=== PATIENT | female | born 1940 | race Caucasian/White ===

== ENCOUNTER → 2016-11-16 | Outpatient (CLI) | payer MEDICARE, OTHER ==
[~2016-11-16] MED LIST: ALEN70TA3 PO; CONTRAST GIVEN MC PRN; ESOM20CA PO; IOHEXOL 240 MG/ML 50ML VIAL. PO ONE; IOHEXOL 300 MG/ML 75 ML VIAL IV ONE
--- NOTE | 2016-11-16 11:31 | RAD ---
CT chest abdomen pelvis with IV contrast History: Staging of lymphoma. Comparison: None. Technique: After administration of oral and intravenous contrast, 75 mL Omnipaque 300, helical CT of the chest, abdomen, and pelvis was performed from the lung apices through the ischial tuberosities. One or more of the following individualized dose reduction techniques were utilized for the study: Automated exposure control Adjustment of mA and/or kV according to patient's size Use of iterative reconstruction technique. Findings: Visualized thyroid is symmetric. Trachea and mainstem bronchi appear patent. Variant aortic arch is seen with the left vertebral artery arising directly from the aortic arch. Small mediastinal lymph nodes are seen. Right upper paratracheal lymph node measures 0.7 x 0.7 cm in maximum dimension. Right lower paratracheal lymph node measures 1.8 x 0.9 cm. AP window lymph node measures 1.2 x 0.9 cm. Subcarinal lymph node measures 1.4 x 0.7 cm. Right cardiophrenic lymph node measures 1.1 x 1.0 cm. Largest left cardiophrenic lymph node measures 1.7 x 0.6 cm. No pneumothorax or pleural effusion is seen. There are innumerable small groundglass centrilobular nodules involving both lungs, most evident in the lower lobes and right middle lobe. Spleen is massively enlarged. Spleen measures 17.0 x 10.6 cm in maximum axial dimension x 24.1 cm in craniocaudal dimension. Abdominal and pelvic lymphadenopathy is seen. For example, largest portacaval lymph node measures 4.5 x 2.3 cm in axial dimension (series 4 image 27). Aortocaval lymph node measures 2.1 x 1.7 cm in axial dimension (series 4 image 37). Largest largest left infrarenal para-aortic lymph node measures 2.4 x 1.5 cm (series 4 image 35). Multiple enlarged mesenteric lymph nodes are seen. For example, root of the mesentery of the abdomen demonstrates lymph node measuring 2.3 x 1.4 cm (series 4 image 44). Proximal right common iliac lymph node measures 1.6 x 0.9 cm. Liver, spleen, and bilateral adrenal glands are unremarkable. Gallbladder is unremarkable. Bilateral kidneys enhance symmetrically. There is evidence of mass effect and partial impression of the left kidney secondary to a massively enlarged spleen. Duodenal diverticulum is seen. Urinary bladder is unremarkable. No bowel obstruction or inflammation is seen. No free air or free fluid is seen in the abdomen or pelvis. Impression: 1. Small to borderline mediastinal lymph nodes are seen. Borderline cardiophrenic lymph nodes are present. 2. Numerous centrilobular groundglass nodules involving both lungs, more evident in the lower lobes. This finding is nonspecific, but possible etiologies include infectious bronchiolitis or other small airway infection. Respiratory bronchiolitis and hypersensitivity pneumonitis can also give appearance of groundglass centrilobular nodules, although with these entities, the nodules are more commonly located located in the upper lobes. Recommend correlation with respiratory symptoms. 3. Massive splenomegaly. Abdominal and pelvic lymphadenopathy.
== END | disposition home or self-care (01) ==
LOC: CT 08:55
PROVIDERS: ATTEND Internal Medicine Hematology & Oncology
DX: D70.9 Neutropenia, unspecified (principal); R59.1 Generalized enlarged lymph nodes
CPT/HCPCS: 71260; 74177; Q9966; Q9967

== ENCOUNTER 2016-11-24 08:18 | Outpatient (CLI) | payer MEDICARE, OTHER ==
[2016-11-24] VITALS (13 sets, daily range): BP systolic 104–155; BP diastolic 48–85
[~2016-11-24] VITALS: Ht 167.6 cm; Wt 66.7 kg
[~2016-11-24 08:18] MED LIST changes: -CONTRAST GIVEN MC PRN; -IOHEXOL 240 MG/ML 50ML VIAL. PO ONE; -IOHEXOL 300 MG/ML 75 ML VIAL IV ONE
[2016-11-24 08:53] LABS: BASO % 1 % (0-3); EOS % 1 % (0-3); HEMATOCRIT 36.1 % (36.0-47.0); HEMOGLOBIN 12.2 g/dL (12.0-15.5); LYMPH # 1.6 x10^3/uL (1.0-4.8); LYMPH % 51 % (24-48); MEAN CORPUSCULAR HEMOGLOBIN 30 pg (25-35); MEAN CORPUSCULAR HGB CONC 34 g/dL (31-37); MEAN CORPUSCULAR VOLUME 90 fL (79-100); MONO % 4 % (0-9); NEUT % 44 % (31-73); PLATELET COUNT 153 x10^3/uL (140-400); RED BLOOD COUNT 3.99 x10^6/uL (3.50-5.40); RED CELL DISTRIBUTION WIDTH 14.9 % (11.5-14.5); WHITE BLOOD COUNT 3.2 x10^3/uL (4.0-11.0)
[2016-11-24] MEDS ORDERED: CETI10CA PO (09:01)
[2016-11-24 09:03] LABS: PROTHROMBIN TIME PATIENT 12.8 SEC (11.7-14.0)
[2016-11-24] MEDS ORDERED: LIDOCAINE 1% / SOD BICARB 8.4% 20 ML VIAL. IJ ONE ×2 (09:35→11:00)
[2016-11-24] MEDS ORDERED: FLUMAZENIL 0.5 MG/5 ML VIAL. IV ONE (10:26)
[2016-11-24] MEDS ORDERED: fentaNYL PF VIAL 250 MCG/5 ML VIAL ONE (10:26)
[2016-11-24] MEDS ORDERED: MIDAZOLAM HCL/PF 5 MG/5 ML VIAL. ONE (10:26)
[2016-11-24] MEDS ORDERED: NALOXONE 0.4 MG/ML VIAL. ONE (10:26)
[2016-11-24] MEDS ORDERED: MIDAZOLAM HCL/PF 5 MG/5 ML VIAL. IV ONE (11:00)
[2016-11-24] MEDS ORDERED: fentaNYL PF VIAL 100 MCG/2 ML VIAL IM ONE (11:00)
--- NOTE | 2016-11-24 11:49 | PDOC ---
MODERATE SEDATION ASSESSMENT RISKS/ALTERNATIVES Risks/Alternatives Risks and alternatives of this type of sedation and procedure discussed with: RISK/ALTERNATIVES: Patient H & P ON CHART H & P H & P on chart and reviewed for co-morbid conditions and appropriate labs. H&P ON CHART: Yes STATUS PREG STATUS ASSESSED: Yes MEDS/ALLERGIES REVIEWED Meds/Allergies Reviewed Medications and Allergies including time and route of recently administered narcotics and sedatives. MEDS/ALLERGIES REVIEWED: Yes ASA RATING ASA RATING: II AIRWAY ASSESSMENT Airway Assessment Airway patency, oral function limitations, presence of caps, crowns, dentures, partials, and ability to extend neck assessed. AIRWAY ASSESSMENT: Yes MALLAMPATI SCORE MALLAMPATI SCORE: II PRE-SEDATION ASSESSMENT PRE-SEDATION ASSESSMENT: Yes BASSAM BRANDON MD November 24, 2016 11:49
--- NOTE | 2016-11-24 11:49 | PDOC1 ---
History and Physical Date of Procedure Date of Admission History of Present Illness Reason for Visit 76 yo with lymphoma Past Medical History Past Medical History see nursing pre-op assessment Current Medications Current Medications Current Medications Lidocaine/Sodium Bicarbonate (Buffered Lidocaine 1%) 20 ml STK-MED ONCE IJ ; Start 11/24/16 at 09:35; Stop 11/24/16 at 09:36; Status DC Naloxone HCl (Narcan) 0.4 mg STK-MED ONCE .ROUTE ; Start 11/24/16 at 10:26; Stop 11/24/16 at 10:27; Status DC Flumazenil (Romazicon) 0.5 mg STK-MED ONCE IV ; Start 11/24/16 at 10:26; Stop 11/24/16 at 10:27; Status DC Midazolam HCl (Versed) 5 mg STK-MED ONCE .ROUTE ; Start 11/24/16 at 10:26; Stop 11/24/16 at 10:27; Status DC Fentanyl Citrate (Fentanyl 5ml Vial) 250 mcg STK-MED ONCE .ROUTE ; Start at 10:26; Stop 11/24/16 at 10:27; Status DC Lidocaine/Sodium Bicarbonate (Buffered Lidocaine 1%) 20 ml 1X ONCE IJ Last administered on 11/24/16 10:56; Start 11/24/16 at 11:00; Stop 11/24/16 at 11:01; Status DC Midazolam HCl (Versed) 5 mg 1X ONCE IV Last administered on 11/24/16 10:56; Start 11/24/16 at 11:00; Stop 11/24/16 at 11:01; Status DC Fentanyl Citrate (Fentanyl 2ml Vial) 250 mcg 1X ONCE IM Last administered on 10:58; Start 11/24/16 at 11:00; Stop 11/24/16 at 11:01; Status DC Active Scripts Active Reported Zyrtec (Cetirizine Hcl) 10 Mg Capsule 10 Mg PO Fosamax (Alendronate Sodium) 70 Mg Tablet 70 Mg PO WEEKLY Nexium Capsule (Esomeprazole Magnesium) 20 Mg Capsule.dr 20 Mg PO DAILYAC Allergies Allergies: Coded Allergies: No Known Drug Allergies (Unverified , 11/16/16) Physical Exam Vital Signs Vital Signs Date Time Temp Pulse Resp B/P (MAP) Pulse Ox O2 Delivery O2 Flow Rate FiO2 11/24/16 11:37 67 12 91 11/24/16 11:22 Nasal Cannula 2.0 11/24/16 08:56 97.7 141/56 (84) 97.7 Other see nursing pre-op assessment Assessment Assessment Lymphoma Problems: Plan Plan CT Bone Marrow Bx and CT retroperitoneal biopsy BASSAM BRANDON MD November 24, 2016 11:49
--- NOTE | 2016-11-24 11:50 | PDOC ---
BRIEF OPERATIVE NOTE Pre-Op Diagnosis Lymphoma Post-Op Diagnosis same Procedure Performed CT Bone Marrow Bx and CT Lymph node biopsy Surgeon Guillerom Anesthesia Type: Conscious Sedation Specimens Obtained 6 x 16 gauge cores of retroperitoneal lymph node. 2 x 2cc marrow aspirates and 1 x 10g marrow core. Complications No immediate BASSAM BRANDON MD November 24, 2016 11:50
--- NOTE | 2016-11-24 12:52 | RAD ---
Procedure: CT-guided bone marrow biopsy and CT-guided retroperitoneal lymph node biopsy Clinical Indication: 76-year-old female with history of lymphoma. Sedation: Conscious sedation was administered for 23 minutes. The patient was monitored by a qualified independent observer throughout the time of sedation. Please refer to the medical record for exact doses of medications utilized to achieve moderate sedation. Antibiotics: None Contrast: None Sterility: The procedure was performed in its entirety using appropriate elements of sterile technique. Consent: The procedure was explained in its entirety to the patient or the patients designated signs sales representative by a member of the treatment team, including a discussion of the risks, benefits and commonly accepted alternatives to the procedure, as well as the expected consequences of no therapy whatsoever. Discussion of the risks included, but was not limited to, those that are most frequent and those that are rare but possibly severe or life-threatening, as well as the possibility of unforeseen complications. Technique and Findings: Following informed consent, the patient was prepped and draped in usual sterile fashion. Preliminary CT scan of the area of interest was performed. 1% lidocaine was used to achieve local anesthesia over the left posterior superior iliac spine as well as over the left retroperitoneum. Small dermatotomies were made in both locations. Under periodic CT surveillance, a 10-gauge needle guide was advanced into the left posterior superior iliac spine and 2 separate 2 cc marrow aspirates were obtained followed by a single 10-gauge core biopsy specimen. Specimens were processed by on site time study technologist. Hemostasis was readily achieved with manual compression following needle removal. A 17-gauge needle guide was then advanced under periodic CT surveillance towards the dominant left retroperitoneal lymph node. 6 x 18-gauge core biopsy specimens were then obtained and divided between RPMI and formalin. Once again hemostasis was achieved with manual compression following removal of the needle guide. Complications: No immediate Impression: 1. CT-guided bone marrow biopsy and aspiration as described. 2. CT-guided retroperitoneal lymph node biopsy as described. PQRS Compliance Statement: One or more of the following individualized dose reduction techniques were utilized for this examination: 1. Automated exposure control 2. Adjustment of the mA and/or kV according to patient size 3. Use of iterative reconstruction technique
== END 2016-11-24 12:55 | disposition home or self-care (01) ==
LOC: INTRAD 08:18
PROVIDERS: ATTEND Internal Medicine Hematology & Oncology
DX: R16.1 Splenomegaly, not elsewhere classified (principal); C85.90 Non-Hodgkin lymphoma, unspecified, unspecified site; K21.9 Gastro-esophageal reflux disease without esophagitis; Z90.710 Acquired absence of both cervix and uterus
CPT/HCPCS: 36415; 38221; 49180; 77012; 85027; 85610; C1892; G0364; J2250; J3010; 88184; 88185; 88237

== ENCOUNTER → 2017-01-19 | Outpatient (CLI) | payer MEDICARE, OTHER ==
[2016-11-24 12:52] VITALS: BP 122/54
[~2017-01-19] MED LIST changes: +CETI10CA PO
--- NOTE | 2017-01-19 09:10 | RAD ---
Complete abdomen ultrasound study. History: Lymphoma of spleen. Findings: The gallbladder is normal without gallstones. The extra hepatic bile measures 2.6 cm in caliber which is normal. The pancreas is homogeneous without focal enlargement. No focal aneurysmal dilatation of the abdominal aorta is seen. The intrahepatic portion of the IVC is unremarkable. The liver is homogeneous and measures 15.7 cm in length. The length of the right kidney is 10.9 cm and the length of the left kidney is 9.9 cm. No hydronephrosis or renal mass or perinephric fluid collection is seen on either side. The spleen measures 16.9 cm in length and is homogeneous. No ascites is seen. IMPRESSION: Splenomegaly. The spleen measures 16.9 cm in length
== END | disposition home or self-care (01) ==
LOC: US 07:21
PROVIDERS: ATTEND Internal Medicine Hematology & Oncology
DX: C85.97 Non-Hodgkin lymphoma, unspecified, spleen (principal); R16.1 Splenomegaly, not elsewhere classified
CPT/HCPCS: 76700

== ENCOUNTER → 2017-03-13 | Outpatient (CLI) | payer MEDICARE, OTHER ==
[2016-11-24 12:52] VITALS: BP 122/54
--- NOTE | 2017-03-13 11:30 | RAD ---
DATE: 03/13/2017 EXAM: DIGITAL SCREEN BILAT W/CAD HISTORY: 76-year-old female for routine screening. COMPARISON: 2010, 2009, 2008 mammograms This study was interpreted with the benefit of Computerized Aided Detection (CAD ). The breast parenchyma is heterogeneously dense, which could reduce sensitivity of mammography. Breast parenchyma level C. FINDINGS: New Punctate calcifications are seen in the inner lower quadrant of the right breast. Benign bilateral appearing dystrophic and secretory calcifications noted. No suspicious spiculated mass. IMPRESSION: Punctate calcifications in the inner lower quadrant of the right breast. These are likely benign given other bilateral benign calcifications. However, magnification views are recommended. BI-RADS CATEGORY: 0 INCOMPLETE: NEEDS ADDITIONAL IMAGING EVALUATION AND/OR PRIOR MAMMOGRAMS FOR COMPARISON. RECOMMENDED FOLLOW-UP: PQRS compliance statement: Patient information was entered into a reminder system with a target due date for the next mammogram. Mammography is a sensitive method for finding small breast cancers, but it does not detect them all and is not a substitute for careful clinical examination. A negative mammogram does not negate a clinically suspicious finding and should not result in delay in biopsying a clinically suspicious abnormality. "Our facility is accredited by the [employer] Mammography Program." MTDD
== END | disposition home or self-care (01) ==
LOC: MAMMO 07:46
PROVIDERS: ATTEND Family Medicine
DX: Z12.31 Encounter for screening mammogram for malignant neoplasm of breast (principal)
CPT/HCPCS: G0202; 77067

== ENCOUNTER → 2017-03-23 | Outpatient (CLI) | payer MEDICARE, OTHER ==
[2016-11-24 12:52] VITALS: BP 122/54
--- NOTE | 2017-03-23 15:43 | RAD ---
DATE: 03/23/17 EXAM: DIGITAL DIAGNOSTIC RT HISTORY: New Right breast calcifications seen on a screening mammogram COMPARISON: Screening mammograms from 07/10/11 This study was interpreted with the benefit of Computerized Aided Detection (CAD). TECHNIQUE: CC and MLO spot magnification views are obtained. FINDINGS: Breast Density: HETERO The breast parenchyma is heterogeneiously dense, which could reduce sensitivity of mammography. Breast parenchyma level C.. The group of calcifications seen in the inferior medial right breast is better defined there are a few additional benign-appearing calcifications. IMPRESSION: Calcifications in the medial inferior right breast. Given presence of an additional benign-appearing calcifications, these are probably benign, however six-month follow-up right breast mammogram including spot magnification views may obtained to closely follow these calcifications. BI-RADS CATEGORY: 3 PROBABLE BENIGN-SHORT TERM F/U RECOMMENDED FOLLOW-UP: 6M 6 MONTH FOLLOW-UP PQRS compliance statement: Patient information was entered into a reminder system with a target due date for the next mammogram. Mammography is a sensitive method for finding small breast cancers, but it does not detect them all and is not a substitute for careful clinical examination. A negative mammogram does not negate a clinically suspicious finding and should not result in delay in biopsying a clinically suspicious abnormality. "Our facility is accredited by the [employer] Mammography Program."
== END | disposition home or self-care (01) ==
LOC: MAMMO 13:38
PROVIDERS: ATTEND Family Medicine
DX: R92.8 Other abnormal and inconclusive findings on diagnostic imaging of breast (principal)
CPT/HCPCS: G0206; 77065

== ENCOUNTER → 2017-06-29 | Outpatient (CLI) | payer MEDICARE, OTHER ==
[2016-11-24 12:52] VITALS: BP 122/54
--- NOTE | 2017-06-29 09:53 | RAD ---
Examination: Ultrasound abdomen complete History: History of lymphoma spleen. Comparison: None available Findings: The visualized pancreas grossly appears unremarkable. The visualized aorta, IVC are patent. No evidence of gallstones identified. The common bile duct measures 2.4 mm in transverse dimension. The liver measures 13.6 cm. The right kidney measures 9.8 x 4.2 x 4.0 cm. The left kidney measures 9.7 x 4.9 x 3.6 cm. The spleen measures 13.9 cm in length. Impression: Mild splenomegaly.
== END | disposition home or self-care (01) ==
LOC: US 08:30
PROVIDERS: ATTEND Internal Medicine Hematology & Oncology
DX: C85.97 Non-Hodgkin lymphoma, unspecified, spleen (principal); R16.1 Splenomegaly, not elsewhere classified
CPT/HCPCS: 76700

== ENCOUNTER → 2018-09-26 | Outpatient (CLI) | payer MEDICARE, OTHER ==
[2016-11-24 12:52] VITALS: BP 122/54
[~2018-09-26] MED LIST changes: +CONTRAST GIVEN. MC PRN; +IOHEXOL 240 MG/ML 50ML VIAL. PO ONE; +IOHEXOL 300 MG/ML 100ML VIAL. IV ONE
--- NOTE | 2018-09-26 09:33 | RAD ---
CT of the chest, abdomen, and pelvis with contrast 09/26/2018 INDICATION: CT of chest, abdomen, and pelvis November 16, 2016. TECHNIQUE: Multidetector CT imaging of the chest, abdomen, and pelvis was performed following the administration of IV contrast FINDINGS: CHEST: Heart size is normal no pericardial effusion is identified. No pathologically enlarged mediastinal lymphadenopathy is seen. No pathologically enlarged axillary adenopathy is seen. Origin of the left vertebral artery from the aortic arch is noted. Thoracic aorta is otherwise unremarkable in course and contour. No pneumothorax, pleural effusion, or focal consolidative infiltrate is identified. Mild linear atelectasis or scarring is seen in the lung bases. The bony thorax is grossly intact. The spleen has dramatically decreased in size with respect to comparison CT scan. Small round nodule immediately posterior to the medial spleen is also decreased in size. Small lateral nodule was not apparent on prior study but may have been obscured by relatively large volume of the spleen on exam. On today's study the spleen measures approximately 9 cm x 5.5 cm x 13.5 cm. On prior study the spleen measured approximately 18 cm x 10 cm x 25 cm. Scattered small periaortic lymph nodes are noted, decreased in size and prominence in the interim since comparison study. Similarly, scattered mesenteric lymph nodes are noted, which have decreased in prominence since prior study. Mild haziness in the surrounding mesentery is again noted. This is nonspecific.The liver and gallbladder are unremarkable in appearance. The adrenal glands and kidneys are unremarkable. No free fluid is seen in the abdomen or pelvis. No bowel obstruction is seen. No acute inflammatory changes involving the bowel are identified. Visualized bladder is unremarkable prior hysterectomy noted. No acute osseous changes are seen. IMPRESSION: 1. No evidence of acute cardiopulmonary process 2. Significant decrease in the size of the spleen and adjacent splenule in the interim. Decreasing retroperitoneal and mesenteric adenopathy. With given history of lymphoma, findings likely reflect interval response to treatment. Consider continued imaging surveillance as clinically indicated. 3. No other acute intra-abdominal abnormality is seen CT DOSING PQRS STATEMENT: One or more of the following individualized dose reduction techniques were utilized for this examination: 1. Automated exposure control 2. Adjustment of the mA and/or kV according to patient size 3. Use of iterative reconstruction technique Electronically signed by: Matt Harris MD (09/26/2018 9:29 AM) [id number]
== END | disposition home or self-care (01) ==
LOC: CT 07:37
PROVIDERS: ATTEND Internal Medicine Hematology & Oncology
DX: C85.80 Other specified types of non-Hodgkin lymphoma, unspecified site (principal); R59.0 Localized enlarged lymph nodes
CPT/HCPCS: 71260; 74177; Q9966; Q9967

== ENCOUNTER → 2019-03-19 | Outpatient (CLI) | payer MEDICARE, OTHER ==
[2016-11-24 12:52] VITALS: BP 122/54
[~2019-03-19] MED LIST changes: -CONTRAST GIVEN. MC PRN; -IOHEXOL 240 MG/ML 50ML VIAL. PO ONE; -IOHEXOL 300 MG/ML 100ML VIAL. IV ONE
--- NOTE | 2019-03-19 09:28 | RAD ---
DATE: 03/19/2019 EXAM: MAMMO CHASE SCREENING BILATERAL HISTORY: Routine screening COMPARISON: 07/10/2011, 03/13/2017 mammographic exams This study was interpreted with the benefit of Computerized Aided Detection (CAD). Breast Density: HETERO The breast parenchyma is heterogenously dense, which could reduce sensitivity of mammography. Breast parenchyma level C. FINDINGS: Benign calcifications are present. No significant change in calcifications identified upon correlation with the most recent previous exam. No masses or distortion. IMPRESSION: Stable BI-RADS CATEGORY: 1 NEGATIVE RECOMMENDED FOLLOW-UP: 12M 12 MONTH FOLLOW-UP PQRS compliance statement: Patient information was entered into a reminder system with a target due date in one year for the next mammogram. Mammography is a sensitive method for finding small breast cancers, but it does not detect them all and is not a substitute for careful clinical examination. A negative mammogram does not negate a clinically suspicious finding and should not result in delay in biopsying a clinically suspicious abnormality. "Our facility is accredited by the [employer] Mammography Program."
== END | disposition home or self-care (01) ==
LOC: MAMMO 08:38
PROVIDERS: ATTEND Family Medicine
DX: Z12.31 Encounter for screening mammogram for malignant neoplasm of breast (principal); N64.89 Other specified disorders of breast
CPT/HCPCS: 77063; 77067

== ENCOUNTER → 2021-06-06 | Outpatient (CLI) | payer MEDICARE, OTHER ==
[2016-11-24 12:52] VITALS: BP 122/54
--- NOTE | 2021-06-06 11:18 | KCIC ---
EXAM: DUAL ENERGY X-RAY ABSORPTIOMETRY (DEXA). HISTORY: Postmenopausal screening. FINDINGS: The lowest measured T-score is -2.7 in the lumbar spine, based on a bone mineral density of 0.746 g/cm^2. Refer to the worksheets for full detail. No comparison examinations are available. IMPRESSION: 1. Osteoporosis. Bone mineral density yields a T-score of -2.5 or less. Fracture risk is high. 2. FRAX report: Not calculated. METHODOLOGY: Dual energy x-ray absorptiometry was performed to measure bone mineral density. The foll owing analysis is based on the 2019 Official Positions of the International Society for Clinical Dens itometry: Measurements of the hips and the average of L1-L4 are preferred. When the spine and/or hip cannot be feasibly measured or interpreted, or in the setting of hyperparathyroidism, distal radial bone minera l density may be measured. The lumbar spine T-score is based on the average bone mineral density of L1-L4. In the setting of art ifact or anatomic abnormality, some lumbar levels may be excluded, and the remaining levels used for calculation. A single lumbar level is not used for diagnosis, and if only a single level is available for assessment, another anatomic site will be used to assign a diagnosis. The hip T-score is based on the bone mineral density measurement of the femoral neck or total proxima l femur of either side, whichever is lowest. Bilateral mean values are not used for diagnosis. The forearm T-score is derived from 33% of the distal radius of the nondominant forearm. Electronically signed by: Rocio Villa MD (06/06/2021 11:16 AM) [id number]
--- NOTE | 2021-06-07 17:33 | KCIC ---
Bilateral digital screening mammograms with 3-D tomosynthesis: Reason for examination: Routine screening. Comparison is made to previous studies dated 03/19/2019 03/13/2017. Bilateral mammograms in CC and oblique projections were obtained with 2-D imaging and 3-D tomosynthes is imaging on a Siemens Inspiration unit and reviewed on the workstation. Interpretation was made wit h the benefit of CAD. The skin and nipples show no abnormalities. No abnormal axillary lymph nodes are seen. The breast par enchyma is extremely dense. (Breast density: Category D.) There are no dominant masses, suspicious ca lcifications or architectural distortion. Benign calcifications are present. Impression: No evidence of malignancy. Recommend routine screening. Your patient's mammogram demonstrates that she has dense breast tissue (breast density category C or D), which could hide abnormalities, and if she has other risk factors for breast cancer that have bee n identified, she might benefit from supplemental screening tests that may be suggested by you as her ordering physician. Dense breast tissue, in and of itself, is a relatively common condition. Therefo re, this information is not provided to cause undue concern, but rather to raise your awareness and t o promote discussion with your patient regarding the presence of other risk factors, in addition to d ense breast tissue. Your patient's mammography results will be sent to her. BI-RAD Category 2: Benign. "Our facility is accredited by the [employer] Mammography Program." This patient's information has been entered into a reminder system for the patient to be notified wit h the results of her examination and a target date for the next mammogram. Electronically signed by: Cristal Mehta MD (06/07/2021 5:31 PM) [id number]
== END ==
LOC: KCIC MAMMO 09:48
PROVIDERS: ATTEND Family Medicine
DX: Z12.31 Encounter for screening mammogram for malignant neoplasm of breast (principal); M81.0 Age-related osteoporosis without current pathological fracture; M85.80 Other specified disorders of bone density and structure, unspecified site
CPT/HCPCS: 77063; 77067; 77080

== ENCOUNTER → 2021-11-21 | Outpatient (CLI) | payer MEDICARE, OTHER ==
[2016-11-24 12:52] VITALS: BP 122/54
[2021-11-21 12:13] LABS: BASO % 0 % (0-3); EOS # 0.1 x10^3/uL (0.0-0.7); EOS % 1 % (0-3); HEMATOCRIT 39.8 % (36.0-47.0); LYMPH # 1.3 x10^3/uL (1.0-4.8); LYMPH % 25 % (24-48); MEAN CORPUSCULAR HEMOGLOBIN 32 pg (25-35); MEAN CORPUSCULAR HGB CONC 35 g/dL (31-37); MEAN CORPUSCULAR VOLUME 92 fL (79-100); MONO # 0.3 x10^3/uL (0.0-1.1); MONO % 6 % (0-9); NEUT # 3.6 x10^3/uL (1.8-7.7); NEUT % 68 % (31-73); PLATELET COUNT 197 x10^3/uL (140-400); RED BLOOD COUNT 4.31 x10^6/uL (3.50-5.40); RED CELL DISTRIBUTION WIDTH 13.9 % (11.5-14.5); WHITE BLOOD COUNT 5.4 x10^3/uL (4.0-11.0)
[2021-11-21 12:22] LABS: CALCIUM 9.1 mg/dL (8.5-10.1); GFR 53.3; POTASSIUM 3.7 mmol/L (3.5-5.1)
[2021-11-21 12:28] LABS: ALBUMIN 3.7 g/dL (3.4-5.0); ALBUMIN/GLOBULIN RATIO 1.2 (1.0-1.7); TOTAL BILIRUBIN 0.4 mg/dL (0.2-1.0); TOTAL PROTEIN 6.9 g/dL (6.4-8.2)
== END ==
LOC: ONCLAB 11:43
PROVIDERS: ATTEND Internal Medicine Hematology & Oncology
DX: C83.07 Small cell B-cell lymphoma, spleen (principal)
CPT/HCPCS: 36415; 80053; 83615; 85025